=== PATIENT | male | born 1960 | race African-American/Black ===

== ENCOUNTER 2021-01-31 10:47 | Emergency (ER) | payer OTHER ==
[2021-01-31] MEDS: Lidocaine 2% Viscous Solution 15 ML Cup TOP ONE (11:20)
[2021-01-31] MEDS: Ibuprofen 800 MG Tab PO ONE (11:21)
[2021-01-31] MEDS: Acetaminophen 500 MG Tab PO ONE (11:21)
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
== END 2021-01-31 11:55 | disposition home or self-care (01) ==
LOC: FB.ED 10:47
DX: T20.16XA Burn of first degree of forehead and cheek, initial encounter (principal); T23.101A Burn of first degree of right hand, unspecified site, initial encounter; X08.8XXA Exposure to other specified smoke, fire and flames, initial encounter
CPT/HCPCS: 99283; A9270